=== PATIENT | male | born 1980 | race Caucasian/White ===

== ENCOUNTER 2016-11-01 07:29 | Day surgery (SDC) | payer BC ==
[~2016-11-01] VITALS: Ht 172.7 cm; Wt 89.1 kg
[2016-11-01 08:01] VITALS: Ht 172.7 cm; Wt 89.1 kg
[2016-11-01 08:48] VITALS: BP 127/75; PULSE 68; RESP 18
--- NOTE | 2016-11-01 09:13 | OPPN ---
Date/Time of Note Date/Time of Note DATE: 11/01/16 TIME: 09:11 Operative Report Preoperative Diagnosis Chronic diarrhea Rectal bleeding Postoperative Diagnosis Internal hemorrhoids Operation/Procedure Performed Colonoscopy and biopsy Provider: JAVED MARTINEZ MD Anesthesia Type: moderate sedation Estimated blood loss: none Transfusion Required: no Specimens Random colonic mucosal biopsy Grafts/Implants: none Complications: no JAVED MARTINEZ MD Nov 01, 2016 09:13
[2016-11-01] MEDS ORDERED: MIDAZOLAM 1 MG/ML 2 ML INJ ONE ×3 (09:23)
[2016-11-01] MEDS ORDERED: FENTAnyl 50 MCG/ML VIAL ONE (09:23)
[2016-11-01 09:48] VITALS: BP 123/82; RESP 14
--- NOTE | 2016-11-01 10:14 | GILP ---
DATE OF PROCEDURE: 11/01/2016 SURGEON: Angie Beach MD PROCEDURE PERFORMED: Colonoscopy and biopsy. PREOPERATIVE DIAGNOSES: 1. Chronic diarrhea. 2. Rectal bleeding. POSTOPERATIVE DIAGNOSES: 1. Colonoscopy all the way to the cecum and into the terminal ilium. 2. Normal terminal ilium. 3. Random biopsies were taken to rule out microscopic colitis. 4. Internal hemorrhoids. INDICATION: Mr. Kareem Philip is a 36-year-old male patient who had a history of chronic diarrhea. He also had rectal bleeding. The patient was scheduled for colonoscopy for further evaluation. The procedure and possible complications were well explained to the patient. He understood and consented to the procedure. DESCRIPTION OF PROCEDURE: Under influence of fentanyl and Versed, the colonoscope was carefully introduced in the rectum. Under direct vision, it was advanced all the way to the cecum, into the ileocecal valve and into the terminal ilium. FINDINGS: The terminal ilium was normal. Colonic mucosa was normal. Random biopsies were taken to rule out microscopic colitis. The patient was noted to have internal hemorrhoids. He tolerated the procedure very well. There was no complication from the procedure. At the end of procedure, he was awake with stable vital signs. He was discharged home in care of his family. IMPRESSION: Please see postop diagnoses. PLAN: 1. Bentyl 10 mg orally 3 times daily as needed for diarrhea. 2. Anusol HC suppository 3. Await histopathology report. Dictated By: MD HONEY Diggs/alicia/yakov /Document#: [id number] CC: Angie Beach MD;*[facility]*
== END 2016-11-01 10:54 | disposition home or self-care (01) ==
LOC: GIL 07:29
PROVIDERS: ATTEND Internal Medicine Gastroenterology
DX: K64.8 Other hemorrhoids (principal)
CPT/HCPCS: 45380; 88305; J2250; J3010